=== PATIENT | male | born 1980 ===

== ENCOUNTER 2016-03-02 18:29 | Emergency (ER) | payer OTHER ==
[~2016-03-02] VITALS: Ht 177.8 cm; Wt 113.4 kg
[2016-03-02 19:32] LABS: ABSOLUTE BASOPHIL COUNT 0 /CUMM (0.0-0.2); ABSOLUTE EOSINOPHIL COUNT 0.4 /CUMM (0.0-0.7); ABSOLUTE GRANULOCYTE CT 4.6 /CUMM (1.4-6.5); ABSOLUTE LYMPH COUNT 2.3 /CUMM (1.2-3.4); ABSOLUTE MONOCYTE COUNT 0.6 /CUMM (0.10-0.60); BASOPHIL % 0.4 % (0.0-2.0); EOSINOPHIL % 5.1 % (0-5); GRANULOCYTE % 57.5 % (42.2-75.2); HEMATOCRIT 44.8 % (42-52); MEAN CORPUSCULAR HGB 29.4 PG (27.0-31.0); MEAN CORPUSCULAR HGB CONC 33.4 G/DL (33.0-37.0); MEAN CORPUSCULAR VOLUME 87.9 FL (80.0-94.0); MEAN PLATELET VOLUME 9.4 FL (7.4-10.4); PLATELET COUNT 187 /CUMM (130-400); RBC DISTRIBUTION WIDTH 15.4 % (11.5-14.5); RED BLOOD CELL CT 5.09 /CUMM (4.70-6.10); WHITE BLOOD CELL COUNT 7.9 /CUMM (4.8-10.8)
[2016-03-02] MEDS ORDERED: ARIPIPRAZOLE5 M1 PO (19:54)
[2016-03-02] MEDS ORDERED: TRAZODONE HCL50 M1 PO (19:54)
[2016-03-02] MEDS ORDERED: TRAMADOL HCL50 M1 PO (19:55)
[2016-03-02] MEDS ORDERED: TRAMADOL HCL E150 MG PO (19:55)
[2016-03-02] MEDS ORDERED: DULOXETINE HCL60 MG PO (19:56)
[2016-03-02] MEDS ORDERED: HYDROCODON-ACE1 EAC3 PO (19:56)
[2016-03-02] MEDS ORDERED: ADVAIR 250-501 EACH INH (19:56)
[2016-03-02] MEDS ORDERED: PROAIR HFA8.5 GM INH (19:56)
--- NOTE | 2016-03-02 19:56 | ED CARDIAC/CP/PALPITATIONS ---
History of Present Illness General Chief Complaint: Chest Pain Stated Complaint: CP, SOB Source: patient Exam Limitations: no limitations Vital Signs & Intake/Output Vital Signs & Intake/Output Vital Signs Date Time Temp Pulse Resp B/P Pulse O2 O2 Flow FiO2 Ox Delivery Rate 03/02 2328 56 12 138/67 97 Room Air 03/02 2152 96.8 68 15 149/67 96 Room Air 03/027 96.0 65 18 143/63 97 Room Air 03/02 1840 98.5 72 16 139/92 97 Room Air ED Intake and Output 03/03 0000 03/02 1200 Intake Total 0 Output Total Balance 0 Intake, IV 0 Patient 250 lb Weight Allergies Coded Allergies: No Known Allergies (03/02/16) Reconcile Medications Albuterol Sulfate (Proair Hfa) 90 MCG HFA.AER.AD 2 PUF INH Q4-6 PRN PRN ASTHMA (Reported) Aripiprazole 5 MG TABLET 7.5 MG PO DAILY MENTAL HEALTH (Reported) Duloxetine HCl 60 MG CAPSULE.DR 2 CAP PO DAILY MENTAL HEALTH (Reported) Fluticasone/Salmeterol (Advair 250-50 Diskus) 250 MCG-50 MCG/DOSE BLST.W.DEV 1 PUF INH BID ASTHMA (Reported) Gabapentin 600 MG TABLET 2 TAB PO TID NERVE PAIN (Reported) Hydrocodone/Acetaminophen (Hydrocodon-Acetaminoph 7.5-325) 7.5 MG-325 MG TABLET 1 TAB PO Q6H PRN PAIN (Reported) Sodium Fluoride (Denta 5000 Plus) 1.1 % CREAM..G. 1 MERCEDES TOP QPM DENTITION ( Reported) Tramadol HCl (Tramadol HCl ER) 150 MG CPBP.25.75 150 MG PO DAILY PAIN ( Reported) Tramadol HCl 50 MG TABLET 1 TAB PO TID PRN PAIN (Reported) Trazodone HCl 50 MG TABLET 100 MG PO QPM SLEEP (Reported) Triage Note: PT STATES THAT HE WAS CLEANING UP THE KITCHEN ABOUT 30 MINUTES AGO WHEN HE HAD A SUDDEN ONSET OF L SIDE CP THAT RADIATES INTO HIS L SHOULDER, DENIES SOB, ALSO STATES THAT ALL DAY HE HAS BEEN SEEING INTERMITTANT BRIGHT LIGHTS , " CALLS THEM BRAIN ZAPS" Triage Nurses Notes Reviewed? yes Onset: Abrupt Duration: hour(s):, constant, continues in ED Timing: recent history Quality/Severity: moderate, severe Radiation: neck, shoulders Activities at Onset: activity (LIGHT) HPI: 35-year-old male comes in with sudden onset severe left-sided chest paiN. Patient reports that the symptoms began about an hour prior to arrival. Patient reports that he was experiencing a sudden onset headache that had occurred a couple hours before that. Pain radiates into his back and into her shoulder and into his neck. Severe. Denies any vomiting but feels associated shortness of breath and some diaphoresis. Patient reports that he was putting things away in the kitchen when he started to experience the symptoms. Denies any recent trauma. Denies any other associated symptoms. (MALA YORK) Past History Travel History Traveled to [facility] past 21 day No Medical History Any Pertinent Medical History? see below for history Neurological: NONE EENT: NONE Cardiovascular: NONE Respiratory: asthma Gastrointestinal: NONE Hepatic: NONE Renal: NONE Musculoskeletal: NONE Psychiatric: NONE Endocrine: NONE Blood Disorders: NONE Cancer(s): NONE SKEIN DRIER/Reproductive: NONE Surgical History Surgical History: non-contributory Psychosocial History What is your primary language Uzbek Tobacco Use: Never used ETOH Use: denies use Illicit Drug Use: denies illicit drug use Family History Hx Contributory? No (MALA YORK) Review of Systems Review of Systems Constitutional: Reports: no symptoms. EENTM: Reports: no symptoms. Respiratory: Reports: see HPI. Cardiovascular: Reports: see HPI. GI: Reports: no symptoms. Genitourinary: Reports: no symptoms. Musculoskeletal: Reports: see HPI. Skin: Reports: no symptoms. Neurological/Psychological: Reports: see HPI. Hematologic/Endocrine: Reports: no symptoms. Immunologic/Allergic: Reports: no symptoms. All Other Systems: Reviewed and Negative (MALA YORK) Physical Exam Physical Exam General Appearance: well developed/nourished, no apparent distress, alert, awake Head: atraumatic, normal appearance Eyes: Bilateral: normal appearance, PERRL, EOMI. Ears, Nose, Throat: normal pharynx, normal ENT inspection, hearing grossly normal Neck: normal inspection, supple, full range of motion Respiratory: normal breath sounds, chest non-tender, no respiratory distress Cardiovascular: regular rate/rhythm Gastrointestinal: soft Back: normal inspection Extremities: normal inspection, normal range of motion Neurologic/Psych: no motor/sensory deficits, awake, alert, oriented x 3, normal gait, normal mood/affect Skin: intact, normal color Core Measures ACS in differential dx? Yes Severe Sepsis Present: No Septic Shock Present: No (MALA YORK) Progress Differential Diagnosis: AMI, aortic dissection, atrial fibrillation, costochondritis, hyperkalemia, hypovolemia, hyperthyroid, hyperventilation, intracranial hemorrhage, musculoskeletal pain, pancreatitis, pericarditis, pneumonia, pneumothorax, pulmonary embolism, PVCs/PACs, unstable angina, V-fib/V -Tach, WPW syndrome, subarachnoid hemorrhage Plan of Care: Orders Procedure Date/time Status TROPONIN LEVEL 03/02 2329 Complete EKG 03/02 2329 Active Telemetry/Video News Editor 03/02 1953 Active TROPONIN LEVEL 03/02 1923 Complete COMPREHENSIVE METABOLIC PANEL 03/02 1923 Complete CBC WITHOUT DIFFERENTIAL 03/02 1923 Complete EKG 03/02 1830 Active Laboratory Tests 03/02/16 2316: Troponin I < 0.01 03/02/161923: Anion Gap 10, Estimated GFR > 60, BUN/Creatinine Ratio 13.0, Glucose 80, Calcium 9.6, Total Bilirubin 0.6, AST 43, ALT 38, Alkaline Phosphatase 92, Troponin I < 0.01, Total Protein 7.7, Albumin 4.5, Globulin 3.2, Albumin/Globulin Ratio 1.4, CBC w Diff NO MAN DIFF REQ, RBC 5.09, MCV 87.9, MCH 29.4, RDW 15.4 H, MPV 9.4, Gran % 57.5, Lymphocytes % 29.2, Monocytes % 7.8, Eosinophils % 5.1 H, Basophils % 0.4, Absolute Granulocytes 4.6, Absolute Lymphocytes 2.3, Absolute Monocytes 0.6, Absolute Eosinophils 0.4, Absolute Basophils 0, PUBS MCHC 33.4 Diagnostic Imaging: Viewed by Me: CT Scan. Discussed w/RAD: CT Scan. Radiology Impression: XAM TYPE: CAT - CT NECK W IV CONTRAST EXAMINATION: CT NECK WITH CONTRAST CLINICAL INFORMATION: Sudden onset headache and chest pain. Neck pain. COMPARISON: CT scan of the head same day. TECHNIQUE: Sewer Pipe Press Operator images were obtained. A CT acquisition of the neck was performed after the intravenous administration of contrast. A total of 125 mL Optiray 350 was utilized for this examination. No adverse contrast reaction was reported. Sagittal and coronal reconstructions generated at the acquisition workstation. DLP: 493.61 mGy-cm. FINDINGS: There is symmetric prominence of the palatine and lingual tonsillar tissue. The nasopharyngeal and oropharyngeal mucosal spaces are otherwise normal. Parapharyngeal and retromaxillary fat is preserved. Press Cutter spaces are symmetric. The parotid and submandibular glands are normal. The epiglottis is normal and the preepiglottic fat is preserved. The glottic and subglottic airways are normal. The thyroid gland is normal and the remainder of the visualized visceral soft tissues are normal. There are no pathologically enlarged cervical lymph nodes. No mediastinal or axillary adenopathy is visualized within the [id number] of this examination. Lung apices are clear. The aortic arch apex is normal and the origins of the major aortic branches are grossly patent. Internal jugular veins fill symmetrically. There are chronic postoperative changes related to a suboccipital craniectomy and posterior C1 arch resection. The skull base is otherwise intact. There is no worrisome lytic or blastic osseous lesion within the [id number] this examination. There is no mastoid or middle ear effusion. There is moderate paranasal sinus disease primarily affecting the maxillary sinuses and ethmoid air cells. A prominent mucous retention cyst nearly completely opacifies a left sphenoid chamber. Limited visualization of intracranial structures reveals no abnormal finding. IMPRESSION: There is no worrisome soft tissue mass or enhancement. No pathologically enlarged cervical lymph nodes. There are chronic changes of a suboccipital decompressive craniectomy and a posterior C1 arch resection. Moderate paranasal sinus disease as described above. DICTATED BY: CINTIA SHER, LISA Negron DATE/TIME DICTATED:03/02/162055 SANITATION DIRECTOR:TIA DATE/ TIME TRANSCRIBED:03/02/162055, SERVICE DATE: 03/02/16 EXAM TYPE: CAT - CT HEAD WO IV CONTRAST EXAMINATION: CT HEAD WITHOUT CONTRAST CLINICAL INFORMATION: Sudden onset headache. COMPARISON: None. TECHNIQUE: Contiguous axial imaging was performed from the skull base to vertex without intravenous administration of contrast. DLP: 600 mGy-cm. FINDINGS: Noncontrast CT imaging of the brain demonstrates postsurgical changes related to prior suboccipital craniectomy. No acute intracranial abnormality is identified. There is no acute intracranial hemorrhage, mass or mass effect or abnormal extra-axial fluid collections. Aguilar-white matter differentiation is preserved. There are no focal areas of hypoattenuation within a vascular distribution to suggest acute transcortical ischemia. The ventricles are normal in size, without hydrocephalus. No acute calvarial abnormality is identified. Soft tissues appear unremarkable. Evaluation of the paranasal sinuses demonstrates near complete opacification of the left sphenoid sinus. The remaining imaged paranasal sinuses and mastoid air cells are well aerated. IMPRESSION: 1. No acute intracranial abnormality. Postsurgical changes related to prior suboccipital craniectomy. 2. Near complete opacification of the left sphenoid sinus. This may be secondary to a large mucous retention cyst or polyp. The remaining paranasal sinuses and mastoid air cells are well aerated. DICTATED BY: SIRI SOTO MD DATE/TIME DICTATED:03/02/162050 SANITATION DIRECTOR:TIA DATE/TIME TRANSCRIBED:2050 CONFIDENTIAL, DO NOT COPY WITHOUT APPROPRIATE AUTHORIZATION. < Electronically signed in Other Vendor System> SIGNED BY: SIRI SOTO MD 03/02/162056, SERVICE DATE: 03/02/16 EXAM TYPE: CAT - CTA CHEST-AORTIC DISSECTION EXAMINATION: CT ANGIOGRAM CHEST with and without contrast CLINICAL INFORMATION: Sudden onset of headache and chest pain, neck pain. COMPARISON: None. TECHNIQUE: Multidetector volumetric imaging was obtained through the chest without contrast material. Subsequently, images were obtained through the chest after the administration of 125 mL of intravenous Optiray 350. Multiplanar reconstructed images in coronal and sagittal orientations were submitted. MIP images were created on a separate workstation by the interpreting radiologist. FINDINGS: Vascular: Aorta: Normal in course and caliber without significant atherosclerotic disease. No intramural hematoma or dissection. Ascending thoracic aorta: 3 cm Aortic arch: 2.4 cm Ascending thoracic aorta: 2.2 cm The left common carotid artery arises from the right brachiocephalic. Supraaortic arteries have normal caliber. The right and left subclavian arteries are normal. The vertebral arteries are normal. The proximal carotid arteries are normal. The pulmonary arteries and pulmonary veins are normal. No gross evidence of pulmonary embolism on this study, which is only sensitive for emboli centrally. The takeoff of the celiac artery and superior mesenteric artery are widely patent. Nonvascular: Lungs: Clear. Minimal dependent atelectasis. No consolidation. Central airways are clear. No emphysema. No pleural effusion or pneumothorax. Mediastinum: Heart is normal in size. No pericardial effusion. No adenopathy. Thyroid gland is unremarkable. Upper abdomen: Multiple small nonobstructing calculi are present within the kidneys. The kidneys only partially imaged on this study. The imaged portions of the liver, spleen, pancreas, and adrenal glands are unremarkable. Upper abdominal small bowel is unremarkable. There is mild multilevel degenerative disc disease in the thoracic spine. No fracture or spondylolisthesis. Vertebral body heights are normal. IMPRESSION: 1. No acute intrathoracic findings. Specifically, no acute vascular abnormalities in the chest. 2. Minimal dependent atelectasis. 3. Bilateral renal calculi Initial ED EKG: normal intervals, normal p-waves, normal QRS complex, normal sinus rhythm, rate (64) Hand-Off Endorsed To: PHYLLIS SHER,KODI Stephen Endorsed Time: 2228 Pending: EKG, labs (MALA YORK) Departure Departure Condition: Stable Clinical Impression Primary Impression: Atypical chest pain Secondary Impressions: Headache Referrals: PATIENT HAS NO PRIMARY CARE DR (PCP/Family) OLIVIA FELDMAN MD Additional Instructions: Follow up with cad manager provided. Return if any other concerns worsening symptoms. Please go over all results of today's visit with your primary care doctor. Contact your primary care doctor to let them know you were here in the emergency room. There may be nonspecific findings which may not be related to your visit today here in the emergency room but may require further evaluation and chronic monitoring by your primary care doctor. If you had a laceration today the chance of foreign body always remains. You should follow-up with your primary care doctor for recheck in 3-5 days for a wound check. If you had an x-ray done there is a chance that a fracture could have been missed on initial read and you should follow-up with your primary care doctor for repeat x-rays if symptoms persist. If your blood pressure was elevated here in the emergency room please have rechecked by her primary care doctor within the next 48 hours by your primary care doctor. If you were prescribed a narcotic here in the emergency room or any type of controlled substances you're not allowed to drive while taking this medication or operate any type of heavy machinery. Narcotics can make you feel lightheaded dizziness nausea and can cause constipation. You may need to grain picker a stool softener. Thank you for choosing [facility] emergency room. Please return to the emergency room immediately if you have any other concerns worsening of symptoms. Departure Forms: Customer Survey General Discharge Information (MALA YORK) Departure Disposition: HOME OR SELF CARE PA/MEMBERSHIP ADVISOR Co-Sign Statement Statement: ED Attending supervision documentation- [X] I saw and evaluated the patient. I have also reviewed all the pertinent lab results and diagnostic results. I agree with the findings and the plan of care as documented in the PA's/MEMBERSHIP ADVISOR's documentation. [X] I have reviewed the ED Record and agree with the PA's/MEMBERSHIP ADVISOR's documentation. [] Additions or exceptions (if any) to the PAs/MEMBERSHIP ADVISOR's note and plan are summarized below: [] (PHYLLIS SHER,KODI Stephen) Critical Care Note Critical Care Note Critical Care Time: 30-74 min (MALA YORK)
[2016-03-02] MEDS ORDERED: DENTA 5000 PLUS51 GM TOP (19:57)
[2016-03-02] MEDS ORDERED: GABAPENTIN600 M1 PO (19:58)
--- NOTE | 2016-03-02 20:57 | CT SCAN REPORT ---
EXAMINATION: CT HEAD WITHOUT CONTRAST CLINICAL INFORMATION: Sudden onset headache. COMPARISON: None. TECHNIQUE: Contiguous axial imaging was performed from the skull base to vertex without intravenous administration of contrast. DLP: 600 mGy-cm. FINDINGS: Noncontrast CT imaging of the brain demonstrates postsurgical changes related to prior suboccipital craniectomy. No acute intracranial abnormality is identified. There is no acute intracranial hemorrhage, mass or mass effect or abnormal extra-axial fluid collections. Aguilar-white matter differentiation is preserved. There are no focal areas of hypoattenuation within a vascular distribution to suggest acute transcortical ischemia. The ventricles are normal in size, without hydrocephalus. No acute calvarial abnormality is identified. Soft tissues appear unremarkable. Evaluation of the paranasal sinuses demonstrates near complete opacification of the left sphenoid sinus. The remaining imaged paranasal sinuses and mastoid air cells are well aerated. IMPRESSION: 1. No acute intracranial abnormality. Postsurgical changes related to prior suboccipital craniectomy. 2. Near complete opacification of the left sphenoid sinus. This may be secondary to a large mucous retention cyst or polyp. The remaining paranasal sinuses and mastoid air cells are well aerated.
--- NOTE | 2016-03-02 20:57 | CT SCAN REPORT ---
EXAMINATION: CT ANGIOGRAM CHEST with and without contrast CLINICAL INFORMATION: Sudden onset of headache and chest pain, neck pain. COMPARISON: None. TECHNIQUE: Multidetector volumetric imaging was obtained through the chest without contrast material. Subsequently, images were obtained through the chest after the administration of 125 mL of intravenous Optiray 350. Multiplanar reconstructed images in coronal and sagittal orientations were submitted. MIP images were created on a separate workstation by the interpreting radiologist. FINDINGS: Vascular: Aorta: Normal in course and caliber without significant atherosclerotic disease. No intramural hematoma or dissection. Ascending thoracic aorta: 3 cm Aortic arch: 2.4 cm Ascending thoracic aorta: 2.2 cm The left common carotid artery arises from the right brachiocephalic. Supraaortic arteries have normal caliber. The right and left subclavian arteries are normal. The vertebral arteries are normal. The proximal carotid arteries are normal. The pulmonary arteries and pulmonary veins are normal. No gross evidence of pulmonary embolism on this study, which is only sensitive for emboli centrally. The takeoff of the celiac artery and superior mesenteric artery are widely patent. Nonvascular: Lungs: Clear. Minimal dependent atelectasis. No consolidation. Central airways are clear. No emphysema. No pleural effusion or pneumothorax. Mediastinum: Heart is normal in size. No pericardial effusion. No adenopathy. Thyroid gland is unremarkable. Upper abdomen: Multiple small nonobstructing calculi are present within the kidneys. The kidneys only partially imaged on this study. The imaged portions of the liver, spleen, pancreas, and adrenal glands are unremarkable. Upper abdominal small bowel is unremarkable. There is mild multilevel degenerative disc disease in the thoracic spine. No fracture or spondylolisthesis. Vertebral body heights are normal. IMPRESSION: 1. No acute intrathoracic findings. Specifically, no acute vascular abnormalities in the chest. 2. Minimal dependent atelectasis. 3. Bilateral renal calculi
--- NOTE | 2016-03-02 21:08 | CT SCAN REPORT ---
EXAMINATION: CT NECK WITH CONTRAST CLINICAL INFORMATION: Sudden onset headache and chest pain. Neck pain. COMPARISON: CT scan of the head same day. TECHNIQUE: Migratory Worker images were obtained. A CT acquisition of the neck was performed after the intravenous administration of contrast. A total of 125 mL Optiray 350 was utilized for this examination. No adverse contrast reaction was reported. Sagittal and coronal reconstructions generated at the acquisition workstation. DLP: 493.61 mGy-cm. FINDINGS: There is symmetric prominence of the palatine and lingual tonsillar tissue. The nasopharyngeal and oropharyngeal mucosal spaces are otherwise normal. Parapharyngeal and retromaxillary fat is preserved. Hot Pond Operator spaces are symmetric. The parotid and submandibular glands are normal. The epiglottis is normal and the preepiglottic fat is preserved. The glottic and subglottic airways are normal. The thyroid gland is normal and the remainder of the visualized visceral soft tissues are normal. There are no pathologically enlarged cervical lymph nodes. No mediastinal or axillary adenopathy is visualized within the [id number] of this examination. Lung apices are clear. The aortic arch apex is normal and the origins of the major aortic branches are grossly patent. Internal jugular veins fill symmetrically. There are chronic postoperative changes related to a suboccipital craniectomy and posterior C1 arch resection. The skull base is otherwise intact. There is no worrisome lytic or blastic osseous lesion within the [id number] this examination. There is no mastoid or middle ear effusion. There is moderate paranasal sinus disease primarily affecting the maxillary sinuses and ethmoid air cells. A prominent mucous retention cyst nearly completely opacifies a left sphenoid chamber. Limited visualization of intracranial structures reveals no abnormal finding. IMPRESSION: There is no worrisome soft tissue mass or enhancement. No pathologically enlarged cervical lymph nodes. There are chronic changes of a suboccipital decompressive craniectomy and a posterior C1 arch resection. Moderate paranasal sinus disease as described above.
[2016-03-02 23:28] VITALS: BP 138/67
== END 2016-03-03 00:42 ==
LOC: ERH 18:29
PROVIDERS: Emergency Medicine
DX: R07.89 Other chest pain (principal); R51 Headache
CPT/HCPCS: 93005; 93010; 96374; 96375; J1885

== ENCOUNTER 2016-05-25 14:17 | Emergency (ER) | payer OTHER ==
[~2016-05-25] VITALS: Ht 177.8 cm; Wt 120.2 kg
[~2016-05-25 14:17] MED LIST: ADVAIR 250-501 EACH INH; ARIPIPRAZOLE5 M1 PO; DENTA 5000 PLUS51 GM TOP; DULOXETINE HCL60 MG PO; GABAPENTIN600 M1 PO; HYDROCODON-ACE1 EAC3 PO; PROAIR HFA8.5 GM INH; TRAMADOL HCL E150 MG PO; TRAMADOL HCL50 M1 PO; TRAZODONE HCL50 M1 PO
[2016-05-25 14:23] VITALS: BP 141/87
[2016-05-25] MEDS ORDERED: ALPRAZOLAM ER1 MG PO (15:33)
--- NOTE | 2016-05-25 15:40 | ED UPPER/LOWER EXTREMITY COMPL ---
History of Present Illness General Chief Complaint: Lower Extremity Problems Stated Complaint: LEFT KNEE PAIN Source: patient Exam Limitations: no limitations Vital Signs & Intake/Output Vital Signs & Intake/Output Vital Signs Date Time Temp Pulse Resp B/P Pulse O2 O2 Flow FiO2 Ox Delivery Rate 05/25 1539 98 05/25 1423 98.2 66 18 141/87 100 Room Air ED Intake and Output 05/26 0000 05/25 1200 Intake Total 0 Output Total Balance 0 Intake, Oral 0 Patient 265 lb Weight Allergies Coded Allergies: No Known Allergies (03/02/16) Reconcile Medications Albuterol Sulfate (Proair Hfa) 90 MCG HFA.AER.AD 2 PUF INH Q4-6 PRN PRN ASTHMA (Reported) Alprazolam (Alprazolam ER) 1 MG TAB.ER.24H 1 TAB PO QHS ANXIETY (Reported) Aripiprazole 5 MG TABLET 7.5 MG PO DAILY MENTAL HEALTH (Reported) Duloxetine HCl 60 MG CAPSULE.DR 2 CAP PO DAILY MENTAL HEALTH (Reported) Fluticasone/Salmeterol (Advair 250-50 Diskus) 250 MCG-50 MCG/DOSE BLST.W.DEV 1 PUF INH BID ASTHMA (Reported) Gabapentin 600 MG TABLET 2 TAB PO TID NERVE PAIN (Reported) Hydrocodone/Acetaminophen (Hydrocodon-Acetaminoph 7.5-325) 7.5 MG-325 MG TABLET 1 TAB PO Q6H PRN PAIN (Reported) Sodium Fluoride (Denta 5000 Plus) 1.1 % CREAM..G. 1 MERCEDES TOP QPM DENTITION ( Reported) Tramadol HCl (Tramadol HCl ER) 150 MG CPBP.25.75 150 MG PO DAILY PAIN ( Reported) Trazodone HCl 50 MG TABLET 100 MG PO QPM SLEEP (Reported) Triage Note: 36 Y/O MALE C/O L KNEE PAIN AND L ANKLE SWELLING X 1 WEEK. STATES HE WAS EVALUATED AT [facility] AND HAD NEGATIVE XRAYS; STATES HE IS DUE TO F/U WITH ORTHO NEXT WEDNESDAY BUT STATES SWELLING IN ANKLE IS WORSE AND NOW PT FEELS SWELLING TO L ANKLE. PT USING CRUTCHES IN TRIAGE. STATES HE TOOK VICODIN THIS AM WITH NO RELIEF. PT HAS HX DVT BUT STATES THIS FEELS DIFFERENT Triage Nurses Notes Reviewed? yes Onset: Abrupt Duration: week(s):, constant, continues in ED Timing: recent history HPI: 36-year-old male comes into emergency room with complaints of left knee pain. Previous meniscal tear. Patient reports the pain has been going on since he noticed it while he was walking around and [employer]Js. He also reports that he has noticed some swelling to his ankle. Patient has had multiple sets of x-rays done with no fracture seen. Denies any falls or trauma that he is aware of. Pain is worse with any type or range of motion. Denies any other associated symptoms. (MALA YORK) Past History Travel History Traveled to [place] past 21 day No Medical History Any Pertinent Medical History? 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 No (MALA YORK) Review of Systems Review of Systems Constitutional: Reports: no symptoms. EENTM: Reports: no symptoms. Respiratory: Reports: no symptoms. Cardiovascular: Reports: no symptoms. Gastrointestinal/Abdominal: Reports: no symptoms. Genitourinary: Reports: no symptoms. Musculoskeletal: Reports: see HPI. Skin: Reports: no symptoms. Neurological/Psychological: Reports: no symptoms. Hematologic/Endocrine: Reports: no symptoms. Immunological: Reports: no symptoms. All Other Systems: Reviewed and Negative (MALA YORK) Physical Exam Physical Exam General Appearance: well developed/nourished, mild distress Head: atraumatic Eyes: Bilateral: normal appearance. Ears, Nose, Throat: normal ENT inspection, hearing grossly normal Neck: normal inspection Cardiovascular/Respiratory: no respiratory distress Back: normal inspection Knee Left: limited range of motion, tenderness over the MCL, pain with range of motion, Foot Left: normal inspection Neurologic/Tendon: normal sensation, normal motor functions, normal tendon functions, responds to pain, no evidence tendon injury, no pulse deficit Skin: intact, normal color, warm/dry Lymphatic: no anterior cervical denise (MALA YORK) Progress Differential Diagnosis: cellulitis, contusion, dislocation, DVT, fracture, gout, septic arthritis, sprain, tendon injury Plan of Care: Orders Procedure Date/time Status US-UNILATERAL VENOUS DOPPLER 05/25 1538 Active Diagnostic Imaging: Viewed by Me: Ultrasound. Discussed w/RAD: Ultrasound. Radiology Impression: SERVICE DATE: 05/25/16 EXAM TYPE: US - US- UNILATERAL VENOUS DOPPLER EXAMINATION: US TRIPLEX LOWER EXTREMITY, LEFT CLINICAL INFORMATION: Left lower extremity swelling. COMPARISON: None TECHNIQUE: Color- flow triplex imaging with spectral analysis and compression Doppler were performed on the left lower extremity. FINDINGS: Respiratory variation, normal compression and augmented flow are noted throughout the lower extremity. The visualized common femoral vein, superficial femoral vein, profunda femoral vein, popliteal vein and midcalf peroneal and posterior tibial venous segments show no evidence of deep venous thrombosis. There is no Swartz's cyst. IMPRESSION: Normal triplex scan without evidence of deep venous thrombosis involving the left lower extremity. DICTATED BY: KEN VALENCIA MD DATE/TIME DICTATED:05/25/161738 CHIROPRACTIC PHYSICIAN:TIA DATE/TIME TRANSCRIBED:05/25/161738 (JACOB ESPINAL,MALA) Departure Departure Disposition: HOME OR SELF CARE Condition: Stable Clinical Impression Primary Impression: Left knee pain Referrals: SHANTAL SHER,OLIVIA Stephen (PCP/Family) Additional Instructions: Ice. Rest. Motrin for pain. Elevation. If symptoms do not improve you'll require further evaluation with possible repeat x-rays as well as evaluation by home staging specialist No high impact running or jumping if you have an ankle sprain or any type of lower extremity sprain. Return to normal activity only after symptoms have resolved. You may require a MRI of her left knee. Please go over all results of today's visit with your primary care doctor. Contact your primary care doctor to let them know you were here in the emergency room. There may be nonspecific findings which may not be related to your visit today here in the emergency room but may require further evaluation and chronic monitoring by your primary care doctor. If you had a laceration today the chance of foreign body always remains. You should follow-up with your primary care doctor for recheck in 3-5 days for a wound check. If you had an x-ray done there is a chance that a fracture could have been missed on initial read and you should follow-up with your primary care doctor for repeat x-rays if symptoms persist. If your blood pressure was elevated here in the emergency room please have rechecked by her primary care doctor within the next 48 hours by your primary care doctor. If you were prescribed a narcotic here in the emergency room or any type of controlled substances you're not allowed to drive while taking this medication or operate any type of heavy machinery. Narcotics can make you feel lightheaded dizziness nausea and can cause constipation. You may need to sisal picker a stool softener. Thank you for choosing [facility] emergency room. Please return to the emergency room immediately if you have any other concerns worsening of symptoms. Departure Forms: Customer Survey General Discharge Information Comments 05/25/2016 6:25:00 PM Patient clinically looks well. Nontoxic-appearing. In no apparent distress. No erythema. No warmth. No concern for septic joint. No evidence of DVT. A lot of tenderness over MCL. No laxity with stress of MCL/LCL, limited range of motion of the knee in general. Patient has a follow-up with orthopedic doctor next week. Return if any other concerns. (MALA YORK) PA/[employer] MK[employer] OPERATOR Co-Sign Statement Statement: ED Attending supervision documentation- [] I saw and evaluated the patient. I have also reviewed all the pertinent lab results and diagnostic results. I agree with the findings and the plan of care as documented in the PA's/[employer] MK[employer] OPERATOR's documentation. [x] I have reviewed the ED Record and agree with the PA's/[employer] OPERATOR's documentation. [] Additions or exceptions (if any) to the PAs/[employer] OPERATOR's note and plan are summarized below: [] (KATHARINA SHER,AINSLEY)
--- NOTE | 2016-05-25 17:50 | ULTRASOUND REPORT ---
EXAMINATION: US TRIPLEX LOWER EXTREMITY, LEFT CLINICAL INFORMATION: Left lower extremity swelling. COMPARISON: None TECHNIQUE: Color-flow triplex imaging with spectral analysis and compression Doppler were performed on the left lower extremity. FINDINGS: Respiratory variation, normal compression and augmented flow are noted throughout the lower extremity. The visualized common femoral vein, superficial femoral vein, profunda femoral vein, popliteal vein and midcalf peroneal and posterior tibial venous segments show no evidence of deep venous thrombosis. There is no Swartz's cyst. IMPRESSION: Normal triplex scan without evidence of deep venous thrombosis involving the left lower extremity.
== END 2016-05-25 18:19 ==
LOC: ERH 14:17
DX: M25.562 Pain in left knee (principal)